=== PATIENT | female | born 1940 | race Caucasian/White ===

== ENCOUNTER → 2022-04-26 | Outpatient (CLI) | payer MEDICARE | LOC: US 13:15 | PROVIDERS: ATTEND Urology | DX: N28.89 Other specified disorders of kidney and ureter (principal) | CPT/HCPCS: 76770 ==

== ENCOUNTER 2024-03-27 10:47 | Emergency (ER) | payer MEDICARE ==
[~2024-03-27] VITALS: Ht 165.1 cm; Wt 64.4 kg
[~2024-03-27 10:47] MED LIST: ULTRAM 50MG50 MG PO
[2024-03-27 10:56] VITALS: PULSE 83; RESP 17; TEMP 97.7; O2SAT 100
[2024-03-27 11:28] VITALS: BP 184/92
== END 2024-03-27 11:28 | disposition home or self-care (01) ==
LOC: ER 10:56
DX: I10 Essential (primary) hypertension (principal); I48.91 Unspecified atrial fibrillation; E03.9 Hypothyroidism, unspecified
CPT/HCPCS: 99282